=== PATIENT | female | born 1950 | race Caucasian/White ===

== ENCOUNTER → 2018-05-01 11:12 | Day surgery (SDC) | payer MEDICARE ==
[~2018-05-01 11:12] MED LIST: Acetaminophen TAB* 325 MG PO PRN; Buffered Lidocaine 0.9% SYRIN* 5 ML/SYR SYRINGE INTRADERM ONE; Dexamethasone IV* 4 MG/ML 1 ML (4 MG) ONE; DiMENhydriNATE IV* 50 MG/ML VIAL IV PUSH PRN; DiMENhydriNATE IV* 50 MG/ML VIAL ONE; Famotidine IV* 10 MG/ML 2 ML (20 mg) IV ONE; Famotidine IV* 10 MG/ML 2 ML (20 mg) ONE; HYDROmorphone INJ1* 1 MG/ML SYRINGE IV PRN; Lactated Ringers 1000 ML Bag* 1,000 ML IV SCH; Lidocaine 2% PF * 5 ML VIAL ONE; Midazolam* 1 MG/ML 5 ML VIAL (5 MG) ONE; Naloxone* 0.4 MG/ML 1 ML VIAL IV PRN; Ondansetron INJ* 2 MG/ML VIAL ONE; Propofol* 10 MG/ML 20 ML BTL ONE; Succinylcholine* 20 MG/ML 10 ML VIAL ONE; fentaNYL* 50 MCG/ML 2 ML VIAL (100 MCG VIAL) ONE
[2018-05-01 15:29] VITALS: BP 133/94
--- NOTE | 2018-05-02 01:19 | PRO ---
BRONCHOSCOPY REPORT: DATE OF PROCEDURE: 05/01/18 - [facility] PROCEDURE PERFORMED: Bronchoscopy with endobronchial ultrasound-guided fine- needle aspiration of lymph nodes for lung cancer staging. PREPROCEDURAL DIAGNOSIS: Lung cancer diagnosed from CT-guided biopsy. POSTPROCEDURAL DIAGNOSIS: Negative lymph nodes. ANESTHESIA: General anesthesia. ANESTHESIOLOGIST: Dr. Chappell. DESCRIPTION OF PROCEDURE: Informed consent was obtained from the patient prior to the procedure after all the risks and benefits were thoroughly explained. Appropriate time-out was performed and agreed on by the attending staff. A flexible Olympus bronchoscope was inserted through ET tube for airway inspection. ET tube positioning was confirmed to be 2 cm above the level of yadira. Bronchoscope was then advanced to the right bronchial tree, which was inspected. Small amounts of mucus were noted and was suctioned out. No endobronchial lesions were noted. 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 Bronchoscope was then advanced into left bronchial tree, which was then inspected. No endobronchial lesions were noted. Thin secretions were noted and were suctioned out. Mucosa was friable and would bleed with minimal suction. Bronchoscope was then withdrawn and EBUS bronchoscope was inserted. Bronchoscope was passed on to the left side and L4 lymph node was accessed with 2 passes. Rapid onsite evaluation revealed minimal lymphatic tissue. Station 7 lymph node was then accessed with 2 passes as well. Rapid onsite evaluation revealed lymphatic tissue with no malignant cells. R4 was then accessed with 2 passes. Rapid onsite evaluation revealed lymphatic tissue with no malignant cells. R10 was then accessed with 2 passes as well. Rapid onsite evaluation revealed lymphatic tissue. R15 was accessed by 3 passes. First 2 were inadequate and third pass was adequate to lymphatic tissue, no malignant cells. The patient tolerated the procedure well. The patient was extubated and seen in Recovery in optimal condition. Rest of specimen was placed in formalin. [id number]/[facility] #: [id number] [facility]
== END | disposition home or self-care (01) ==
LOC: OR 11:12
PROVIDERS: ATTEND Internal Medicine
DX: C34.31 Malignant neoplasm of lower lobe, right bronchus or lung (principal); Z87.891 Personal history of nicotine dependence; K21.9 Gastro-esophageal reflux disease without esophagitis; R07.9 Chest pain, unspecified; R06.02 Shortness of breath
CPT/HCPCS: 88172; 88173; 88177; 88305; J0330; J1100; J1240; J2250; J2405; J2704; J3010

== ENCOUNTER → 2018-05-24 10:27 | Day surgery (SDC) | payer MEDICARE ==
[~2018-05-24 10:27] MED LIST changes: -Acetaminophen TAB* 325 MG PO PRN; -Buffered Lidocaine 0.9% SYRIN* 5 ML/SYR SYRINGE INTRADERM ONE; -Dexamethasone IV* 4 MG/ML 1 ML (4 MG) ONE; -DiMENhydriNATE IV* 50 MG/ML VIAL IV PUSH PRN; -DiMENhydriNATE IV* 50 MG/ML VIAL ONE; +Diazepam TAB(*) 5 MG ONE; -Famotidine IV* 10 MG/ML 2 ML (20 mg) IV ONE; -Famotidine IV* 10 MG/ML 2 ML (20 mg) ONE; -HYDROmorphone INJ1* 1 MG/ML SYRINGE IV PRN; +Heparin 2 UNITS/ML IVPREMIX* 2,000 ML IV ONE; +Heparin(*) 1000 UNIT/ML 10 ML VIAL CATH LAB IV ONE; +Iohexol 350 (CONTRAST) 200 ML MDV IV ONE; -Lactated Ringers 1000 ML Bag* 1,000 ML IV SCH; +Lidocaine 1% INJ* 10 MG/ML 30 ML SDV ONE; -Lidocaine 2% PF * 5 ML VIAL ONE; +Midazolam* 1 MG/ML 10 ML VIAL (10 MG) ONE; -Midazolam* 1 MG/ML 5 ML VIAL (5 MG) ONE; +NS 0.9% 1000 ML* 1,000 ML IV SCH; -Naloxone* 0.4 MG/ML 1 ML VIAL IV PRN; -Ondansetron INJ* 2 MG/ML VIAL ONE; -Propofol* 10 MG/ML 20 ML BTL ONE; -Succinylcholine* 20 MG/ML 10 ML VIAL ONE; +VERAPAMIL 2.5 MG/ML 2 ML VIAL ** 5 mg/2 ml ONE; +diPHENhydraMINE PO* 25 MG ONE; +nitroGLYCERIN DRIP* 25,000 MCG/250 ML BTL ONE
[2018-05-24 14:03] VITALS: BP 107/74
--- NOTE | 2018-05-24 15:15 | CATH ---
CC: Dr. Deepak Worthy, [facility]; Abi Sterling, [facility]; Dr. Abbey Lassiter, Hematology/Oncology. CARDIAC CATHETERIZATION REPORT: DATE OF PROCEDURE: 05/24/18 INDICATION FOR PROCEDURE: The patient with a history of exertion-related chest heaviness sensation with shortness of breath, abnormal exercise stress test with rapid rise of heart rate with exercise, and development of symptoms with subtle ST segment changes in late recovery with normal resting and perfusion imaging per interpretation of Dr. Deepak Worthy. Assess for the presence of underlying coronary artery disease. The patient with a history of newly diagnosed lung cancer. PROCEDURE: Coronary arteriography, left heart catheterization, left ventriculography via the right radial artery approach. CONSENT: The patient was interviewed and examined in the holding area where the risks and benefits were explained to the patient and her . She and he understood them and she wished to proceed. PRE-CARDIAC CATHETERIZATION LABORATORY RESULTS: Hemoglobin and hematocrit of 14.6 and 42 with a platelet count of 234,000. BUN and creatinine of 16 and 0.7 , sodium 138, potassium 4.3, chloride 105, bicarb 26. EQUIPMENT UTILIZED: 1. Right radial artery sheath - a 6-Georgian Glidesheath. 2. Diagnostic coronary catheter - a 5-Georgian TIG-4 curved catheter. 3. The diagnostic guidewire - a 260 length Jimenez-curved guidewire. 4. Left heart catheterization catheter - a 5-Georgian PIG Performa radial catheter. MEDICATIONS GIVEN DURING THE PROCEDURE: Included intravenous fluid bolus. The patient received sedation medicine in the holding area prior to being brought into the cardiovascular laboratory. DESCRIPTION OF PROCEDURE: The patient was brought into the cardiovascular laboratory where a formal time-out was performed. The patient was prepped and draped in a sterile fashion. It should be noted that the right radial artery was assessed in the holding area prior to being brought in the cardiovascular laboratory room and was found to be acceptable for an approach. As such, under ultrasound guidance, the right radial artery was cannulated and the sheath was placed and a diagnostic coronary arteriography was performed utilizing the TIG- 4 catheter. Central aortic pressure was recorded using the radial PIG Performa catheter which was advanced to the ascending aorta. The catheter was passed across the aortic valve into the left ventricle where left ventricular pressure was recorded. Left ventriculography was performed utilizing a total of 24 cc of Omnipaque dye at a rate of 12 cc per second. The catheter was then pulled back across the aortic valve to recheck gradient. At the end of the case, the catheter was removed was removed and the sheath was removed and hemostasis was obtained with a Vasc Band. The reverse Barbeau was a B. The total contrast used was 75 cc of Omnipaque dye. The radiation exposure included 4.8 minutes of fluoro time. The air kerma radiation was 847 milligray. The DAP radiation was 6310 microgray per meter square. RESULTS: HEMODYNAMIC DATA: Left heart catheterization revealed ascending aortic pressure of 118/61 with a mean of 86. Left ventricular pressure 110 over left ventricular end- diastolic pressure of 14 (of note, the monitor interpreted the left ventricular end- diastolic pressure incorrectly). LEFT VENTRICULOGRAPHY: Performed in the CHARLES projection revealed normal left ventricular contractility with no focal wall motion abnormality, overall ejection fraction of approximately 65%. No significant mitral regurgitation was identified. CORONARY ARTERIOGRAPHY: A. Right coronary artery - a dominant vessel supplying multiple acute marginal branches to the right coronary artery. Of note, there was a low-lying acute marginal branch, which supplied the mid to distal inferior septal area. The continuation of the right coronary artery supplied a small caliber somewhat short PDA, which supplied the proximal segment of the inferior wall followed by 2 very thin posterior left ventricular branches. No focal stenosis was noted throughout the course of the vessel, although all distal vessels appeared to be small in caliber. B. Left coronary artery: 1. Left main - widely patient and short in nature. 2. Left anterior descending artery. The left anterior descending artery supplied a high first diagonal branch, small in caliber with corkscrew appearance followed by a second small caliber diagonal branch. The mid third diagonal branch was larger in caliber and again its distal vessel appeared to be corkscrew in appearance. The continuation of the LAD extended toward the apical region, but was found to be a thin vessel by the time it reached the apical region. There were no significant stenotic focal obstructions noted. 3. Circumflex artery - a nondominant vessel supplying a high, very small caliber bifurcating first obtuse marginal branch followed by second and third small caliber obtuse marginal branch. There was a moderate size, bifurcating fourth obtuse marginal branch which extended to the posterior apical region with a continuation, supplying 2 more low-lying posterior left ventricular branches. There were no focal stenotic coronary artery lesions noted. Once again, it should be noted multiple vessels in their distal portions were small in caliber with corkscrew appearance. OVERALL ASSESSMENT: Normal well preserved left ventricular systolic function. No focal stenotic coronary artery disease within the proximal and mid segments of all of the arteries. Of note, the distal most segments of the branches and the main vessels do show thinning in nature and multiple ones show corkscrew appearance. No areas were noted that required stenting or interventional therapy at this point. Continued aggressive medical management with medical therapy, control of blood pressure, left ventricular relaxation, and perhaps even dilatation of coronary arteries would be appropriate. This information was shared with Dr. Deepak Worthy, the patient's primary manufacturing plant manager and Dr. Abbey Lassiter, Hematology/Oncology. [id number]/[facility] #: [id number] [facility]
== END | disposition home or self-care (01) ==
LOC: CHICATH 10:27
PROVIDERS: ATTEND Internal Medicine Cardiovascular Disease
DX: I20.9 Angina pectoris, unspecified (principal); R07.9 Chest pain, unspecified; R06.02 Shortness of breath; C34.90 Malignant neoplasm of unspecified part of unspecified bronchus or lung; Z95.1 Presence of aortocoronary bypass graft; Z87.891 Personal history of nicotine dependence; K21.9 Gastro-esophageal reflux disease without esophagitis; I10 Essential (primary) hypertension
CPT/HCPCS: 76937; 93458; A9270-GY; J1644; J2250; J3010